=== PATIENT | male | born 1940 | race Caucasian/White ===

== ENCOUNTER 2019-06-03 13:09 | Day surgery (SDC) | payer OTHER, SELFPAY ==
[2019-06-02 10:51] VITALS: BMI 21.8
[2019-06-03] VITALS (7 sets, daily range): BP systolic 124–158; BP diastolic 64–85; PULSE 56–76; RESP 10–16; TEMP 36.2–36.6; O2SAT 96–99; BMI 21.1
--- NOTE | 2019-06-03 | DI.RAD.S_ITS ---
PROCEDURE: XR LUMBAR SPINE 1V INDICATIONS: L3-4, L4-5 LAMINECTOMY TECHNIQUE: Single intraoperative fluoroscopic lateral view of the lumbar spine were acquired. COMPARISON: None. FINDINGS: Intraoperative fluoroscopic lateral view of lower lumbar spine shows surgical instrument placed posteriorly at approximately L3-4 level. IMPRESSION: Fluoroscopy guidance was provided intraoperatively for lower lumbar spine laminectomy. Dictated by: Abdoulaye Adrian M.D. on 06/04/2019 at 9:11 Approved by: Abdoulaye Adrian M.D. on 06/04/2019 at 9:12
--- NOTE | 2019-06-03 15:25 | SUR.PREOP ---
1515 Patient voiced frustration and displeasure that he is delayed in going in to surgery. Spoke with OR charge to see if flipping rooms is an option, which it is not because of using the same table. Explained this to the patient and that it isn't a significant delay since he is just now scheduled for surgery (short case preceeding him). Continues to be unhappy and mentioned that he could just walk out. Asked what could be done to make him more comfortable and he suggested reading Heraclio to him. Upon admit, patient shared that he was previously on the board at [facility] in [place] and resigned -- and that is why he came down here for surgery.
--- NOTE | 2019-06-03 16:18 | SUR.PREOP ---
informed patient that they are coming out of the operating room soon with the patient before him; That the will clean the room and he will go into surgery. Up to bathroom, voided, walking in the department (no other patients present).
--- NOTE | 2019-06-03 16:34 | PM.PREOP ---
Pre-operative Note Interval Note History & Physical reviewed/Exam performed by Physician: Yes Changes to H&P: No
[2019-06-03] MEDS: CEFAZOLIN 2 GM/100 ML FROZ.PIGGY IV (16:48)
--- NOTE | 2019-06-03 17:15 | SUR.OPER ---
Prone on spine table, head in foam head support, padded chest and pelvic supports, gel pad at knees, lower legs supported by pillows; nipples, genitalia and toes free of pressure, arms secured on foam padded arm boards at <90 degrees abduction. Tape over blanket at thigh secured to table.
[2019-06-03] MEDS: BUPIVACAINE 0.25% W/ EPI 30 ML VIAL INJ (17:26)
[2019-06-03] MEDS: BUPIVACAINE LIPOSOME 266 MG/20 ML VIAL INJ (17:27)
--- NOTE | 2019-06-03 18:24 | PM.OP.1 ---
Operative Date/Time/Diagnoses Date of procedure: 06/03/19 Time of procedure: 16:24 Pre-op diagnosis: 1. L3-4, L4-5 spinal stenosis 2. Neurogenic claudication Post-op diagnosis: same Procedure & Clinicians Procedure: 1. L3-4, L4-5 laminectomies with bilateral partial facetectomies 2. Utilization of microsurgical technique and operating microscope Same procedure as scheduled: No Indications: Patient has been having chronic back pain and worsening lumbar radiculopathy. Patient failed multiple conservative management with worsening pain weakness and numbness in her lower extremity. Patient has been having difficulty performing activity of daily living. After discussing risks benefits of treatment options, patient elected proceed with surgery. Surgeon: Liv Hardy Medical Transcriber: Frieda Browning Click Yes if Unassisted: No Anesthesia Type: General Operative Notes Closure Type: primary Specimen(s): none sent Estimated Blood Loss (mL): 10 Blood products transfused: none Procedure in detail: Patient was seen in the preoperative area. Risks and benefits of the surgery was discussed with the patient. Informed consent was obtained from the patient and placed in the chart. Surgical site was marked. Patient was taken to the operative room. General anesthesia was administered. Prophylactic antibiotic was given to the patient less than 30 min before the incision was made. Patient was placed into a prone position on the Rush table. Patient's back was then prepped and draped in the sterile fashion. Time-out was performed at this time. Using AP and lateral C-arm imaging the interval between L3-4 L4-5 was identified and marked on patient's back. A midline incision was made over the L3-4 L4-5 interval. The fascia was incised in line with skin incision. Dissection was made down to the level of L3 and L4 lamina using bovie and a min. Using microsurgical technique and operating microscope, a L3 and L4 laminectomy was performed using a Kerrison rongeur, Leksell rongeur and micro pituitary. Liagamentum flavum was resected at the site of the laminotomy. Either side of the dura was exposed. Bilateral partial facetcomies was performed to further decompress the lateral recess at L3-4, L4-5 level. After the laminectomy was completed, the area medial lateral superior and inferior to the area of the laminectomy was inspected and explored using a micro curette. No other impinging structure was identified. The wound was then irrigated with sterile normal saline. The deep fascia was closed with 1-0 Vicryl. The subcutaneous tissue was closed with 2-0 Vicryl. The skin was closed skin edenilson. Patient tolerated the procedure well. There were no complications. Patient was transferred recovery room in stable condition. Complications: none Condition: stable Disposition: same day surgery Plan for aftercare: Discharge home when criteria met
== END 2019-06-03 19:22 | disposition home or self-care (01) ==
LOC: OR 13:12
PROVIDERS: PCP Family Medicine; Visit Provider Orthopaedic Surgery Orthopaedic Surgery of the Spine
PROC: (CPT 63047; principal; 2019-06-03 15:15)
DX: M48.062 Spinal stenosis, lumbar region with neurogenic claudication (principal); M54.16 Radiculopathy, lumbar region; M51.36 Other intervertebral disc degeneration, lumbar region
CPT/HCPCS: 63047; 63048; 72020; 76000; C9290; J0690; J1100; J1885; J2250; J2405; J2704; J3010